=== PATIENT | female | born 1980 | race Caucasian/White ===

== ENCOUNTER 2018-02-08 04:45 | Emergency (ER) | payer OTHER ==
[~2018-02-08] VITALS: Ht 157.5 cm; Wt 88.0 kg
[2018-02-08 06:00] VITALS: BP 140/109
== END 2018-02-08 06:00 | disposition home or self-care (01) ==
LOC: ED 04:45
DX: J06.9 Acute upper respiratory infection, unspecified (principal); I10 Essential (primary) hypertension

== ENCOUNTER 2018-06-06 16:18 | Emergency (ER) | payer OTHER ==
[~2018-06-06] VITALS: Ht 154.9 cm; Wt 91.3 kg
[2018-06-06 16:27] VITALS: Ht 154.9 cm; Wt 91.3 kg
[2018-06-06 20:34] VITALS: BP 147/114
== END 2018-06-06 20:34 | disposition home or self-care (01) ==
LOC: ED 16:18
PROC: 3E023NZ Introduction of Analgesics, Hypnotics, Sedatives into Muscle, Percutaneous Approach (ICD-10-PCS; principal; 2018-06-06)
DX: G43.809 Other migraine, not intractable, without status migrainosus (principal); I10 Essential (primary) hypertension
CPT/HCPCS: J1885

== ENCOUNTER 2019-06-15 13:04 | Emergency (ER) | payer SELFPAY ==
[~2019-06-15] VITALS: Ht 154.9 cm; Wt 79.4 kg
[2019-06-15 13:15] VITALS: Ht 154.9 cm; Wt 79.4 kg
[2019-06-15 13:40] LABS: microscopic required? NO
[2019-06-15 13:49] LABS: CALCIUM 9.2 mg/dL (8.5-10.1); CARBON DIOXIDE 20.4 mmol/L (21-32); CHLORIDE SERUM 105 mmol/L (98-107); CREATININE SERUM 0.7 mg/dL (0.6-1.0); GFR1 > 60 mL/min; GLUCOSE SERUM 108 mg/dL (74-106); POTASSIUM SERUM 3.9 mmol/L (3.5-5.1); SODIUM SERUM 139 mmol/L (136-145)
[2019-06-15 13:52] LABS: BASOPHIL % 0.5 % (0-2); PLATELET COUNT 347 x10^3mcL (130-400)
[2019-06-15 13:54] LABS: ALBUMIN 3.7 g/dL (3.4-5.0); ALKALINE PHOSPHATASE 69 U/L (46-116); ALT/SGPT 43 U/L (14-59); AST/SGOT 22 U/L (15-37); BILIRUBIN TOTAL 0.44 mg/dL (0.20-1.00)
[2019-06-15 13:56] LABS: TOTAL PROTEIN, SERUM 8.5 g/dL (6.4-8.2)
[2019-06-15 14:04] LABS: RED CELL DISTRIBUTION WIDTH 15.7 % (11.5-14.5)
[2019-06-15 14:09] LABS: UA SPECIFIC GRAVITY 1.015 (1.005-1.035); urine erythrocyte NEGATIVE (NEGATIVE)
[2019-06-15 15:42] VITALS: BP 139/90
== END 2019-06-15 15:42 | disposition home or self-care (01) ==
LOC: ED 13:04
PROVIDERS: Emergency Medicine
DX: E11.65 Type 2 diabetes mellitus with hyperglycemia (principal); F41.9 Anxiety disorder, unspecified; G43.909 Migraine, unspecified, not intractable, without status migrainosus; F32.9 Major depressive disorder, single episode, unspecified
CPT/HCPCS: J1885; J2270; J2405; J7030; J8597; Q0092

== ENCOUNTER 2019-07-27 22:14 | Emergency (ER) | payer MEDICAID ==
[~2019-07-27] VITALS: Ht 154.9 cm; Wt 100.7 kg
[2019-07-27 22:21] VITALS: Ht 154.9 cm; Wt 100.7 kg
[2019-07-28 00:14] VITALS: BP 164/116
== END 2019-07-28 00:33 | disposition home or self-care (01) ==
LOC: ED 22:14
DX: H60.91 Unspecified otitis externa, right ear (principal); R42 Dizziness and giddiness; I10 Essential (primary) hypertension; F41.9 Anxiety disorder, unspecified; F32.9 Major depressive disorder, single episode, unspecified; G43.909 Migraine, unspecified, not intractable, without status migrainosus
CPT/HCPCS: J7512; J8597; Q0162

== ENCOUNTER 2020-12-23 15:34 | Emergency (ER) | payer OTHER, SELFPAY ==
[~2020-12-23] VITALS: Ht 154.9 cm; Wt 88.9 kg
[2020-12-23 15:36] VITALS: BP 167/99; Ht 154.9 cm; Wt 88.9 kg
== END 2020-12-23 17:39 | disposition home or self-care (01) ==
LOC: ED 15:34
DX: J45.901 Unspecified asthma with (acute) exacerbation (principal); I10 Essential (primary) hypertension; G43.909 Migraine, unspecified, not intractable, without status migrainosus; E66.9 Obesity, unspecified; Z87.19 Personal history of other diseases of the digestive system; Z98.890 Other specified postprocedural states
CPT/HCPCS: J0171; J7512; J7613; J7644

== ENCOUNTER 2020-12-30 15:50 | Emergency (ER) | payer OTHER ==
[~2020-12-30] VITALS: Ht 154.9 cm; Wt 91.2 kg
[2020-12-30 15:57] VITALS: Ht 154.9 cm; Wt 91.2 kg
[2020-12-30 17:59] VITALS: BP 153/97
== END 2020-12-30 17:59 | disposition home or self-care (01) ==
LOC: ED 15:50
DX: U07.1 COVID-19 (principal); J45.909 Unspecified asthma, uncomplicated; I10 Essential (primary) hypertension; G43.909 Migraine, unspecified, not intractable, without status migrainosus